=== PATIENT | female | born 1995 | race Caucasian/White ===

== ENCOUNTER 2018-08-27 23:54 | Emergency (ER) | payer SELFPAY ==
--- NOTE | 2018-08-28 00:21 | EDM.PDOC ---
ED HPI GENERAL MEDICAL PROBLEM - General Chief Complaint: General Stated Complaint: Rash Time Seen by Provider: 08/28/18 00:01 Source of Information: Reports: Patient, Family History Limitations: Reports: No Limitations - History of Present Illness INITIAL COMMENTS - FREE TEXT/NARRATIVE: PT seen with chief complaint of " allergic rash" patient states that she woke up with his fine rash throughout her body has progressively got worse but shows no respiratory distress Onset: Today Duration: Hour(s):, Getting Worse Location: Reports: Generalized Generalized Pain Score (Numeric/FACES): 5 - Related Data Allergies Allergy/AdvReac Type Severity Reaction Status Date / Time amoxicillin Allergy Rash Verified 08/28/18 00:06 diphenhydramine Allergy Anaphylactic Verified 08/28/18 00:06 [From Benadryl] Shock Penicillins Allergy Rash Verified 08/28/18 00:06 Sulfa (Sulfonamide Allergy Rash Verified 08/28/18 00:06 Antibiotics) bay leaves Allergy Anaphylactic Uncoded 08/28/18 00:06 Shock Home Meds: Home Meds . [No Known Home Meds] 08/28/18 [History] ED ROS GENERAL - Review of Systems Review Of Systems: ROS reveals no pertinent complaints other than HPI. ED EXAM, GENERAL - Physical Exam Exam: See Below Exam Limited By: No Limitations General Appearance: Alert, WD/WN, No Apparent Distress Nose: Normal Inspection, Normal Mucosa, No Blood Throat/Mouth: Normal Inspection, Normal Lips, Normal Teeth, Normal Gums, Normal Oropharynx, Normal Voice, No Airway Compromise Head: Atraumatic Neck: Normal Inspection, Supple, Non-Tender, Full Range of Motion Respiratory/Chest: No Respiratory Distress, Lungs Clear, Normal Breath Sounds, No Accessory Muscle Use, Chest Non-Tender Cardiovascular: Normal Peripheral Pulses, Regular Rate, Rhythm, No Edema, No Gallop, No JVD, No Murmur, No Rub GI/Abdominal: Normal Bowel Sounds, Soft, Non-Tender, No Organomegaly, No Distention, No Abnormal Bruit, No Mass (Female) Exam: Deferred Rectal (Female) Exam: Deferred Back Exam: Normal Inspection, Full Range of Motion, NT Extremities: Normal Inspection, Normal Range of Motion, Non-Tender, Normal Capillary Refill, No Pedal Edema Neurological: Alert, Oriented, CN II-XII Intact, Normal Cognition, Normal Gait, Normal Reflexes, No Motor/Sensory Deficits Psychiatric: Normal Affect, Normal Mood Skin Exam: Other (Findings petechial rash throughout her body) Lymphatic: No Adenopathy Departure - Departure Time of Disposition: 00:21 Disposition: Home, Self-Care 01 Clinical Impression: Rash due to allergy - Discharge Information *PRESCRIPTION DRUG MONITORING PROGRAM REVIEWED*: No *COPY OF PRESCRIPTION DRUG MONITORING REPORT IN PATIENT SAUNDRA: No Care Plan Goals: Patient will be sent home on prednisone 10 mg twice a day for 5 days
== END 2018-08-28 00:30 | disposition home or self-care (01) ==
LOC: LL.ED 23:54
DX: R23.3 Spontaneous ecchymoses (principal); T78.49XA Other allergy, initial encounter; Z88.1 Allergy status to other antibiotic agents; Z88.2 Allergy status to sulfonamides; Z88.0 Allergy status to penicillin; Z91.048 Other nonmedicinal substance allergy status
CPT/HCPCS: 99282

== ENCOUNTER 2019-05-09 19:07 | Emergency (ER) | payer MEDICAID ==
[2019-05-09] MEDS ORDERED: Sodium Chloride 0.9% 10 ML Syringe FLUSH PRN (19:25)
[2019-05-09] MEDS ORDERED: Sodium Chloride 0.9% 1,000 ML IV ONE ×2 (19:26→20:30)
[2019-05-09 19:51] LABS: CHLORIDE,CL 107 mmol/L (98-107); SODIUM,NA 143 mmol/L (136-145)
--- NOTE | 2019-05-09 20:14 | EDM.PDOC ---
ED HPI GENERAL MEDICAL PROBLEM - General Chief Complaint: General Stated Complaint: vomiting, Short of breath Time Seen by Provider: 05/09/19 19:35 Source of Information: Reports: Patient History Limitations: Reports: No Limitations - History of Present Illness INITIAL COMMENTS - FREE TEXT/NARRATIVE: 3 day history of illness. Symptoms started as nasal congestion/sore throat/ aches. [place] hot/chilled at times. Later developed nausea and emesis. Had emesis last night and yesterday. Non-bloody. None since around 2pm but unable to hold food/water down. No diarrhea or bowel changes. No UTI complaints/urinary changes. Sore throat has resolved. Now has cough with green sputum. Sputum was pinkish initially. Chest aches with coughing. Is smoker, around 8 cigs daily. No smoking last three days. Unable to keep any OTC meds down either. One sibling ill with ' bronchitis' at home. Treatments [employer]: Reports: Cold Therapy, Other (see below) Other Treatments [employer]: dayquil this a.m. Chest Pain Score (Numeric/FACES): 7 - Related Data Allergies Allergy/AdvReac Type Severity Reaction Status Date / Time amoxicillin Allergy Rash Verified 08/28/18 00:06 diphenhydramine Allergy Anaphylactic Verified 08/28/18 00:06 [From Benadryl] Shock Penicillins Allergy Rash Verified 08/28/18 00:06 Sulfa (Sulfonamide Allergy Rash Verified 08/28/18 00:06 Antibiotics) bay leaves Allergy Anaphylactic Uncoded 08/28/18 00:06 Shock Home Meds: Home Meds Norgestimate-Ethinyl Estradiol [Tri-Sprintec] 1 each PO DAILY 05/09/19 [History] Past Medical History Endocrine/Metabolic History: Reports: Obesity/BMI 30+ - Past Surgical History HEENT Surgical History: Reports: Oral Surgery Musculoskeletal Surgical History: Reports: Knee Replacement, Other (See Below) Other Musculoskeletal Surgeries/Procedures:: Elbow surgery Social & Family History - Tobacco Use Smoking Status *Q: Current Every Day Smoker Years of Tobacco use: 7 Packs/Tins Daily: 0.5 Smoking Cessation Information Provided To Patient: Patient Refused Second Hand Smoke Exposure: Yes - Caffeine Use Caffeine Use: Reports: Coffee, Energy Drinks, Soda, Tea ED ROS GENERAL - Review of Systems Review Of Systems: See Below Constitutional: Reports: Fever, Chills, Malaise, Fatigue, Decreased Appetite. Denies: Night Sweats HEENT: Reports: Ear Pain, Rhinitis, Sinus Problem, Throat Pain. Denies: Ear Discharge, Eye Discharge, Vision Change Respiratory: Reports: Cough, Sputum, Other (deep breath causes chest to ache bilaterally). Denies: Shortness of Breath, Wheezing Cardiovascular: Denies: Palpitations, Syncope GI/Abdominal: Reports: Decreased Appetite, Nausea, Vomiting. Denies: Abdominal Pain, Constipation, Diarrhea, Difficulty Swallowing, Distension, Hematemesis, Hematochezia : Reports: No Symptoms Musculoskeletal: Reports: Other (achy) Skin: Reports: No Symptoms Neurological: Reports: Headache Psychiatric: Reports: No Symptoms ED EXAM, GENERAL - Physical Exam Exam: See Below Exam Limited By: No Limitations General Appearance: Alert, No Apparent Distress, Obese Eye Exam: Bilateral Eye: EOMI, PERRL Ears: Normal External Exam, Normal Canal, Hearing Grossly Normal, Normal TMs Nose: No: Nasal Deformity, Nasal Swelling, Nasal Drainage Throat/Mouth: Normal Inspection, Normal Lips, Normal Oropharynx, Normal Voice, No Airway Compromise Head: Atraumatic, Normocephalic Neck: Normal Inspection, Supple, Non-Tender, Full Range of Motion Respiratory/Chest: No Respiratory Distress, Lungs Clear, Normal Breath Sounds, No Accessory Muscle Use, Chest Non-Tender Cardiovascular: No Murmur, Tachycardia Peripheral Pulses: 2+: Radial (L), Radial (R) GI/Abdominal: Soft, Non-Tender, No Distention, Abnormal Bowel Sounds (decreased) (Female) Exam: Deferred Rectal (Female) Exam: Deferred Back Exam: No: CVA Tenderness (L), CVA Tenderness (R), Muscle Spasm, Paraspinal Tenderness, Vertebral Tenderness Extremities: Non-Tender, Slow Capillary Refill (3 sec). No: Increased Warmth, Mottled, Pallor, Redness Neurological: Alert, Oriented, Normal Cognition, Normal Gait, No Motor/Sensory Deficits Psychiatric: Normal Affect, Normal Mood Skin Exam: Warm, Dry, Intact, Normal Color Course - Vital Signs Last Recorded V/S: Last Vital Signs Temp 37.1 C 05/09/19 19:08 Pulse 102 H 05/09/19 19:20 Resp 16 05/09/19 19:08 BP 129/83 05/09/19 19:20 Pulse Ox 97 05/09/19 19:08 - Orders/Labs/Meds Labs: Laboratory Tests 05/09/19 05/09/19 05/09/19 Range/Units 19:30 19:30 19:30 WBC 6.6 (4.0-10.2) K/uL RBC 4.67 (3.77-5.09) M/uL Hgb 13.9 (11.7-15.5) g/dL Hct 41.9 (34.0-46.0) % MCV 89.7 (84.0-98.0) fL MCH 29.8 (28.2-33.3) pg MCHC 33.2 (31.7-36.0) g/dL RDW 13.7 (11.2-14.1) % Plt Count 291 (150-350) K/uL Neut % (Auto) 52.8 (45.0-80.0) % Lymph % (Auto) 27.3 (10.0-50.0) % [place] % (Auto) 15.8 H (2.0-14.0) % Eos % (Auto) 3.8 (0.0-5.0) % Baso % (Auto) 0.3 (0.0-2.0) % Neut # (Auto) 3.48 (1.40-7.00) K/uL Lymph # (Auto) 1.80 (0.50-3.50) K/uL [place] # (Auto) 1.04 H (0.00-1.00) K/uL Eos # (Auto) 0.25 (0.00-0.50) K/uL Baso # (Auto) 0.02 (0.00-0.20) K/uL Sodium 143 (136-145) mmol/L Potassium 4.2 (3.5-5.1) mmol/L Chloride 107 (98-107) mmol/L Carbon Dioxide 25.8 (21.0-32.0) mmol/L BUN 6 L (7-18) mg/dL Creatinine 0.62 (0.51-1.17) mg/dL Est Cr Clr Drug Dosing 103.10 mL/min Estimated GFR (MDRD) > 60 mL/min Glucose 98 (74-106) mg/dL Lactic Acid 1.1 (0.4-2.0) mmol/L Calcium 9.0 (8.5-10.1) mg/dL Total Bilirubin 0.2 (0.2-1.0) mg/dL AST 16 (15-37) U/L ALT 52 (12-78) U/L Alkaline Phosphatase 96 (46-116) IU/L Total Protein 7.3 (6.4-8.2) g/dL Albumin 3.3 L (3.4-5.0) g/dL Specimen Type Urine Color Urine Appearance Urine pH (5.0-9.0) Ur Specific [place] (1.005-1.030) Urine Protein (NEGATIVE) mg/dL Urine Glucose (UA) (NEGATIVE) mg/dL Urine Ketones (NEGATIVE) mg/dL Urine Occult Blood (NEGATIVE) Urine Nitrite (NEGATIVE) Urine Bilirubin (NEGATIVE) Urine Urobilinogen (0.2-1.0) E.U./dL Ur Leukocyte Esterase (NEGATIVE) Urine RBC /HPF Urine WBC /HPF Ur Epithelial Cells /LPF Urine Bacteria (NONE TO FEW) /HPF Urine HCG, Qual 05/09/19 05/09/19 Range/Units 20:15 20:15 WBC (4.0-10.2) K/uL RBC (3.77-5.09) M/uL Hgb (11.7-15.5) g/dL Hct (34.0-46.0) % MCV (84.0-98.0) fL MCH (28.2-33.3) pg MCHC (31.7-36.0) g/dL RDW (11.2-14.1) % Plt Count (150-350) K/uL Neut % (Auto) (45.0-80.0) % Lymph % (Auto) (10.0-50.0) % [place] % (Auto) (2.0-14.0) % Eos % (Auto) (0.0-5.0) % Baso % (Auto) (0.0-2.0) % Neut # (Auto) (1.40-7.00) K/uL Lymph # (Auto) (0.50-3.50) K/uL [place] # (Auto) (0.00-1.00) K/uL Eos # (Auto) (0.00-0.50) K/uL Baso # (Auto) (0.00-0.20) K/uL Sodium (136-145) mmol/L Potassium (3.5-5.1) mmol/L Chloride (98-107) mmol/L Carbon Dioxide (21.0-32.0) mmol/L BUN (7-18) mg/dL Creatinine (0.51-1.17) mg/dL Est Cr Clr Drug Dosing mL/min Estimated GFR (MDRD) mL/min Glucose (74-106) mg/dL Lactic Acid (0.4-2.0) mmol/L Calcium (8.5-10.1) mg/dL Total Bilirubin (0.2-1.0) mg/dL AST (15-37) U/L ALT (12-78) U/L Alkaline Phosphatase (46-116) IU/L Total Protein (6.4-8.2) g/dL Albumin (3.4-5.0) g/dL Specimen Type Urinvoid Urine Color Yellow Urine Appearance Clear Urine pH 5.5 (5.0-9.0) Ur Specific [place] 1.020 (1.005-1.030) Urine Protein Negative (NEGATIVE) mg/dL Urine Glucose (UA) Negative (NEGATIVE) mg/dL Urine Ketones Negative (NEGATIVE) mg/dL Urine Occult Blood Trace-lysed H (NEGATIVE) Urine Nitrite Negative (NEGATIVE) Urine Bilirubin Negative (NEGATIVE) Urine Urobilinogen 0.2 (0.2-1.0) E.U./dL Ur Leukocyte Esterase Negative (NEGATIVE) Urine RBC 0-5 /HPF Urine WBC 0-5 /HPF Ur Epithelial Cells Moderate H /LPF Urine Bacteria Few (NONE TO FEW) /HPF Urine HCG, Qual Negative Meds: Medications Discontinued Medications Generic Name Dose Route Start Last Admin Trade Name Freq PRN Reason Stop Dose Admin Albuterol/Ipratropium 3 ml 05/09/19 20:27 05/09/19 20:40 Duoneb 3.0-0.5 Mg/3 Ml NEB 05/09/19 20:28 3 ml ONETIME ONE Administration Sodium Chloride 1,000 mls @ 999 mls/hr 05/09/19 19:26 05/09/19 19:43 Normal Saline IV 05/09/19 20:26 999 mls/hr .BOLUS ONE Administration Sodium Chloride 1,000 mls @ 999 mls/hr 05/09/19 20:30 05/09/19 20:39 Normal Saline IV 05/09/19 21:30 999 mls/hr .BOLUS ONE Administration Sodium Chloride 10 ml 05/09/19 19:25 Saline Flush FLUSH ASDIRECTED PRN Keep Vein Open - Radiology Interpretation Free Text/Narrative:: Chest xray did not show obvious focal infiltrate or other acute changes - Re-Assessments/Exams Free Text/Narrative Re-Assessment/Exam: 05/09/19 20:23 Normal WBC. Chem/CBC unremarkable. UA clear. Influenza negative. HCG negative NS bolus to treat dehydration. Zofran given for nausea. Toradol for headache. Suspect viral illness. Normal course of viral illnesses discussed with patient and patient is to follow up for recheck if she has any unusual problems/ worsening. She has access to Albuterol nebs/nebulizer she has at home and was encouraged to use the machine every 6 hours to help with cough Departure - Departure Time of Disposition: 21:30 Disposition: Home, Self-Care 01 Condition: Good Clinical Impression: Viral illness - Discharge Information *PRESCRIPTION DRUG MONITORING PROGRAM REVIEWED*: Not Applicable *COPY OF PRESCRIPTION DRUG MONITORING REPORT IN PATIENT SAUNDRA: Not Applicable Instructions: Viral Respiratory Infection, [id number] Referrals: PCP,Unknown [Ordering Only Provider] - Forms: ED Department Discharge, ED Return to Work/School Form Additional Instructions: Home, rest, clear liquid diet tonight. Advance diet as tolerated tomorrow. Use your nebs/neb machine at home to help with cough. Inhale one neb every 6 hours. OK to use over the counter cough medications if they seem to help. Take Tylenol or Ibuprofen for pain. Follow up as needed if this does not appear to follow a normal viral course. Be aware that coughing/symptoms can last 3-4 weeks, sometimes longer, depending on the bug you caught. If you appear to be improving but suddenly worsen significantly, get rechecked.
[2019-05-09] MEDS ORDERED: Albuterol/Ipratropium 3.0-0.5 MG/3 ML Neb Soln NEB ONE (20:27)
== END 2019-05-09 21:35 | disposition home or self-care (01) ==
LOC: LL.ED 19:07 → SUPCPDRO 19:07 → LL.ED 21:35
DX: B34.9 Viral infection, unspecified (principal); F17.210 Nicotine dependence, cigarettes, uncomplicated; Z88.0 Allergy status to penicillin; Z88.2 Allergy status to sulfonamides; Z91.018 Allergy to other foods
CPT/HCPCS: 36415; 71046; 80053; 81001; 81025; 83605; 85025; 87804; 94640; 96360; 96361; 99285-25; J7030; J7620-GY

== ENCOUNTER 2019-07-24 21:11 | Emergency (ER) | payer MEDICAID ==
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
== END 2019-07-24 21:45 | disposition home or self-care (01) ==
LOC: LL.ED 21:11
CPT/HCPCS: 99283

== ENCOUNTER 2021-02-23 19:35 | Emergency (ER) | payer MEDICAID ==
[2021-02-23] MEDS ORDERED: methylPREDNISolone Sodium Succinate 125 MG/2 ML SDV IM ONE (20:10)
[2021-02-23] MEDS ORDERED: EPINEPHrine 1 MG/1 ML Amp SUBCUT ONE (20:10)
[2021-02-23] MEDS ORDERED: Cetirizine 10 MG Tab PO ONE (20:10)
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
== END 2021-02-23 22:00 | disposition home or self-care (01) ==
LOC: LL.ED 19:35
DX: T63.461A Toxic effect of venom of wasps, accidental (unintentional), initial encounter (principal); M19.90 Unspecified osteoarthritis, unspecified site; E66.9 Obesity, unspecified; Z68.41 Body mass index [BMI] 40.0-44.9, adult; Z88.2 Allergy status to sulfonamides; Z91.018 Allergy to other foods; Z88.0 Allergy status to penicillin; Z91.030 Bee allergy status; Z88.8 Allergy status to other drugs, medicaments and biological substances; Z91.038 Other insect allergy status; Z79.899 Other long term (current) drug therapy
CPT/HCPCS: 96372; 99283; A9270; J0171; J2930